=== PATIENT | female | born 1990 | race African-American/Black ===

== ENCOUNTER 2017-01-09 07:32 | Inpatient (IN) ==
[2017-01-09] MEDS ORDERED: LACTATED RINGERS 500 ML IV PRN (08:54)
[2017-01-09] MEDS ORDERED: ONDANSETRON 4 MG/2 ML VIAL IV PRN (08:54)
[2017-01-09] MEDS ORDERED: MEPERIDINE 50 MG/1 ML VIAL IV PRN (08:54)
[2017-01-09] MEDS ORDERED: AMPICILLIN INJ 2,000 MG in SODIUM CHLORIDE 0.9% 100 ML IV SCH (09:00)
[2017-01-09] MEDS ORDERED: ePHEDrine 50 MG/ML AMP IV PRN ×2 (09:01→09:21)
[2017-01-09] MEDS ORDERED: FAMOTIDINE 20 MG/2 ML VIAL IV ONE (09:01)
[2017-01-09] MEDS ORDERED: PROMETHAZINE 25 MG/1 ML VIAL IM ONE ×2 (09:01→09:21)
[2017-01-09] MEDS ORDERED: CITRIC ACID/SODIUM CITRATE 30 ML UDCUP PO ONE (09:01)
[2017-01-09] MEDS ORDERED: fentaNYL 2 MCG/ROPIV 0.2% EPID 150 ML EPIDURAL SCH ×2 (09:01→09:21)
[2017-01-09] MEDS ORDERED: diphenhydrAMINE 50 MG/1 ML VIAL IV PRN ×2 (09:01→09:21)
[2017-01-09] MEDS ORDERED: hydrOXYzine HCL 25 MG/1 ML VIAL IM PRN ×2 (09:01→09:21)
[2017-01-09] MEDS: LACTATED RINGERS 1,000 ML IV SCH ×3 (09:05→12:00)
[2017-01-09] MEDS ORDERED: ONDANSETRON 4 MG/2 ML VIAL IV ONE (09:21)
[2017-01-09] MEDS ORDERED: LACTATED RINGERS 1,000 ML IV ONE (09:21)
[2017-01-09] MEDS ORDERED: LACTATED RINGERS 500 ML IV ONE (09:21)
[2017-01-09] MEDS ORDERED: LACTATED RINGERS 1,000 ML IV SCH (09:30)
[2017-01-09 09:40] LABS: Basophils % 0.2 % (0.0-0.8); Eosinophils % 0.5 % (0.00-10.9); Hematocrit 28.8 VOL% (35.7-47.0); Hemoglobin 9.2 GM/DL (12.0-16.0); Immature Granulocytes % 0.6 %; Immature Granulocytes Absolute 0.04 #; Lymphocytes % 31.7 % (21.3-54.2); Mean Corpuscular HGB Conc 31.9 GM/DL (32-36); Mean Corpuscular Hemoglobin 27 PG (27-34); Mean Corpuscular Volume 83.5 FL (87-102); Mean Platelet Volume 9.6 FL (9.6-12.0); Monocytes # 0.5 10*3/uL (0.11-0.8); Monocytes % 7.3 % (1.7-12.7); Neutrophils # 3.9 10*3/uL (1.4-7.4); Neutrophils % 59.7 % (38.7-73.9); Platelet Count 231 T/CUMM (130-400); Red Blood Count 3.45 MC/CUMM (3.8-5.5); Red Cell Distribution Width 15.7 % (9.3-17.3); White Blood Count 6.4 T/CUMM (4-12)
[2017-01-09] MEDS ORDERED: LIDOCAINE 1% 50 ML VIAL ONE (10:30)
[2017-01-09] MEDS ORDERED: OXYTOCIN/LR 20 UNIT/1,000 ML BAG IV ONE ×3 (10:30→15:13)
--- NOTE | 2017-01-09 10:49 | OB/GYN History & Physical ---
History of Present Illness Chief complaint: Labor History of present illness: Ms. Pardo is a 26 year old female, with EDC 01/14/17 @ 39w2d gestation. Presented to L&D this am at approx 0700 with c/o contraction that have been occurring throughout the night and worsened at approx 0500. Denies LOF or vaginal bleeding. Reports fetus active. Cx was initially 4cm and changed to 5- 6 cm after 1 hour of observation. She was admitted for labor management, Ampicillin IV was began. Pt rec'd 1 dose IV Demerol for pain management then Epidural anesthesia. She is currently comfortable with no acute distress. No family members are present. care began at approx 20 weeks gestation. She has had regular care since then. Medical hx is sign for anemia. She has had 3 previous vaginal deliveries with proven pelvis up to 6#4oz . No significant family med hx. She is currently on PNV and Ferrous Sulfate. PN labs: Blood type, O+; HIV neg; Hep B NR; RPR NR; Rubella Immune; GBS positive (erythromycin resistant). Home Medications Medication Instructions Recorded Confirmed Type Multivitamin () [ 1 tablet PO DAILY 02/27/16 01/09/17 History Vitamin] Allergies Allergy/AdvReac Type Severity Reaction Status Date / Time No Known Allergies Allergy Verified 02/27/16 19:33 Medical,Surgical,& Family Hx - Medical History Hematology: History of: Anemia - Surgical History Cardiac Surgeries: Patient Denies: Cardiac Catheterization - Family History Family History: Reports;: Family Cancer (MGM), Family Diabetes (Father, PGM, Maternal uncle) Denies;: Family Anesthesia Reaction, Family Heart Disease, Family Hypertension, Family Psychiatric Problems, Family Stroke - Social History Smoking Status: Never smoker Frequency of Alcohol Use: None Type of Drug Use: None Marital Status: Life Partner Lives With:: Significant Other Functional capacity: independent ambulation 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 - Constitutional Vitals: Vital Signs Temp Pulse Resp BP Pulse Ox 01/09/17 08:00 97.4 F L 66 20 114/72 100 General appearance: normal weight, no acute distress - Antepartum / Post Antepartum Exam Cervix - Dilatation: 8cm Effacement: 90 Station: -1 Rupture: AROM @ 1045, clear fluid, no odor Presentation: Vertex Heart Rate: 120, moderate variability, pos accels, no decels, Category 1 tracing [place]: q2-4min, 80-120sec, strong by palpation with soft resting tone - Head Head exam: Present: normal inspection - Respiratory Respiratory exam: Present: clear to auscultation bilaterally - Cardiovascular Cardiovascular exam: Present: regular rate and rhythm - GI/Abdominal GI/Abdominal exam: Present: other (gravid) - Extremities Exam Extremities exam: Present: normal inspection - Neurological Exam Neurological exam: Present: alert, oriented X3 - Psychiatric Psychiatric exam: Present: normal affect, normal mood - Skin Skin exam: Present: normal color, warm, dry Assessment and Plan - Time spent with patient Time spent with patient: Less than 30 minutes (1) Active labor at term Status: Acute Assessment and plan: Continue current management. Expect vaginal delivery. Current Visit: Yes (2) 39 weeks gestation of Status: Acute Current Visit: Yes (3) Late care affecting Status: Acute Current Visit: Yes (4) Anemia complicating in third trimester Status: Acute Assessment and plan: Continue Ferrous Sulfate Current Visit: Yes Results - Labs CBC & BMP: 01/09/17 09:15 Lab Results: I have reviewed the past 24 hour labs
--- NOTE | 2017-01-09 12:44 | Operative Note ---
Date of procedure: 01/09/17 Pre-op diagnosis: Active Labor at 39w2d gestation; Late care; Anemia; GBS positive Post-op diagnosis: other (Vaginal Delivery; 39w2d gestation; late care ; Anemia) Procedure: Pt complete at 1202, +1 station. Pushing began with UCs. @ 1229, CARL position, viable male . Shoulders and body delivered without difficulty. Spontaneous cry and resp. Infant to mother's abd. Cord clamped and cut after pulsations ceased. Cord blood collected. Spontaneous delivery of placenta @ 1232, intact with 3 vessel cord. Pitocin 20unit in 1000cc LR began at bolus rate. Perineum inspected. Bilateral periurethral abrasions and right inner labial abrasion. Hemostatic, no sutures required. Bleeding stable. Fundus firm, ML U-2. Mother and baby stable. Apgars 9/9. Weight 6#3oz. Anesthesia: epidural Surgeon / Physician: Krista Beth Estimated blood loss: other (200mL) Specimens: other (Placenta to pathology) Condition: stable Disposition: floor Results - Labs CBC & BMP: 01/09/17 09:15 Discharge Plan - Discharge Medications No Action Multivitamin () [ Vitamin] 1 tablet PO DAILY - Follow Up or Referral - Forms/Instructions
[2017-01-09] MEDS ORDERED: WITCH HAZEL PADS 100/JAR TOP PRN (12:49)
[2017-01-09] MEDS ORDERED: HYDROCORTISONE 2.5% RECTAL CREAM 30 GM TUBE TOP PRN (12:49)
[2017-01-09] MEDS ORDERED: DIPH/TET/ACEL PERT BOOSTER VACCINE 0.5 ML VIAL IM ONE (12:49)
[2017-01-09] MEDS ORDERED: BISACODYL 10 MG SUPP RECTAL PRN (12:49)
[2017-01-09] MEDS ORDERED: LANOLIN 50% CREAM 0.3 OZ TUBE TOP PRN (12:49)
[2017-01-09] MEDS ORDERED: ACETAMINOPHEN 325 MG TABLET PO PRN (12:49)
[2017-01-09] MEDS ORDERED: BENZOCAINE 20%/MENTHOL 0.5% SPRAY 56 GM CAN TOP PRN (12:49)
[2017-01-09 13:21] LABS: Apearance,Urine CLEAR (Clear); Bacteria,Urine Occasional /HPF (Few); Bilirubin,Urine Negative (Negative); Blood, Urine Negative (Negative); Glucose,Urine (UA) Negative (Negative); Ketones,Urine Negative (Negative); Nitrite,Urine Negative (Negative); Protein,Urine Negative; Squamous Epithelial Cell,Urine Occasional /HPF (0-10); Urine Color Straw (Yellow); Urine Specific Gravity 1.009 (1.001-1.035); Urine Urobilinogen < 2.0 EU/DL (0.2-1.0); WBC,Urine <1 /HPF (0-6)
[2017-01-09] MEDS: IBUPROFEN 800 MG TABLET PO PRN (15:24)
[2017-01-09] MEDS: FERROUS SULFATE 325 MG TABLET PO SCH (21:14)
[2017-01-09] MEDS: DOCUSATE SODIUM 100 MG CAPSULE PO SCH (21:14)
[2017-01-10] MEDS: IBUPROFEN 800 MG TABLET PO PRN (05:15)
[2017-01-10 06:19] LABS: Basophils % 0.2 % (0.0-0.8); Eosinophils # 0.1 10*3/uL (0.0-0.87); Eosinophils % 0.5 % (0.00-10.9); Hematocrit 28.1 VOL% (35.7-47.0); Hemoglobin 8.9 GM/DL (12.0-16.0); Immature Granulocytes % 1.4 %; Immature Granulocytes Absolute 0.15 #; Lymphocytes # 2.9 10*3/uL (1.4-4.0); Mean Corpuscular HGB Conc 31.7 GM/DL (32-36); Mean Corpuscular Hemoglobin 27 PG (27-34); Mean Corpuscular Volume 83.6 FL (87-102); Mean Platelet Volume 9.8 FL (9.6-12.0); Monocytes # 0.7 10*3/uL (0.11-0.8); Monocytes % 5.9 % (1.7-12.7); Neutrophils # 7.2 10*3/uL (1.4-7.4); Platelet Count 196 T/CUMM (130-400); Red Blood Count 3.36 MC/CUMM (3.8-5.5); Red Cell Distribution Width 15.7 % (9.3-17.3)
[2017-01-10] MEDS: DOCUSATE SODIUM 100 MG CAPSULE PO SCH ×2 (09:14→20:18)
[2017-01-10] MEDS: FERROUS SULFATE 325 MG TABLET PO SCH ×2 (09:14→20:18)
--- NOTE | 2017-01-10 16:00 | OB/GYN Progress Note ---
Assessment and Plan (1) Vaginal delivery Problem details: Routine care. 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 Exam SMOKE CONTROL SUPERVISOR - Constitutional Vitals: Vital Signs Temp Pulse Resp BP Pulse Ox 01/10/17 15:04 96.9 F L 64 18 115/76 98 01/10/17 11:32 97.8 F 73 20 111/77 99 01/10/17 08:00 97.6 F 64 18 117/70 98 01/10/17 04:00 98.5 F 67 18 131/70 98 01/10/17 02:00 18 01/10/17 00:00 98.3 F 58 L 18 119/50 97 01/09/17 20:00 98.2 F 63 18 124/74 99 01/09/17 17:55 63 18 110/68 99 01/09/17 16:55 68 18 128/76 100 General appearance: no acute distress - Head Head exam: Present: normal inspection - Neck Neck exam: Present: normal inspection - Respiratory Respiratory exam: Present: clear to auscultation bilaterally. Absent: accessory muscle use - Breast Breasts: as per HPI - Cardiovascular Cardiovascular exam: Present: regular rate and rhythm - GI/Abdominal GI/Abdominal exam: Present: normal bowel sounds, soft. Absent: tenderness - Extremities Exam Extremities exam: Present: normal inspection - Back Exam Back exam: Present: normal inspection - Neurological Exam Neurological exam: Present: alert, oriented X3 - Psychiatric Psychiatric exam: Present: normal affect, normal mood, depressed Results - Labs CBC & BMP: 01/10/17 06:09
[2017-01-11 07:46] VITALS: BP 126/76
[2017-01-11] MEDS: IBUPROFEN 800 MG TABLET PO PRN (07:57)
--- NOTE | 2017-01-11 08:38 | Discharge Summary ---
Hospital Course - Hospital Course Hospital Course: Presented on 01/09/17 in active labor. Pt progressed and had uncomplicated vaginal delivery of a viable male infant. Her course has been normal. She is bottlefeeding. Discharge today. - Time spent with patient Time with patient DS: Less than 30 minutes Diagnosis - Discharge Diagnosis (1) Active labor at term Status: Resolved (2) 39 weeks gestation of Status: Resolved (3) Late care affecting Status: Resolved (4) Anemia complicating in third trimester Status: Acute Specialty Discharge - Follow Up or Referrals Discharge Plan - Discharge Data Disposition: Disch To Home/Self Care Condition at Discharge: Stable Discharge Diet: advance to your usual diet Activity: resume usual activities as tolerated Hygiene: may shower Driving: not for (1 week) Contact your physician if you experience:: fever over 101, Difficulty voiding, Redness or swelling, Nausea/Vomiting, Shortness of breath, Bleeding, pain uncontrolled by pain medications - Discharge Medications New Ibuprofen Tab [Motrin Tab] 800 mg PO Q6H PRN #30 tablet PRN Reason: Pain Moderate (4-7) Ferrous Sulfate Tab [Feosol Original Tab] 325 mg PO BID #60 tablet Continue Multivitamin () [ Vitamin] 1 tablet PO DAILY - Follow Up or Referral Follow Up: Krista Beth CNM [Physician] - - Forms/Instructions Instructions: Perineal Care (DC), Vaginal Delivery (DC), Bleeding (DC) Exam - Constitutional Vitals: Period Temp Pulse Resp BP Sys/Payan Pulse Ox Last 24 Hr 96.9 F-97.8 F 55-73 18-20 111-126/50-77 97-99 General appearance: normal weight, no acute distress - Head Head exam: Present: normal inspection - Respiratory Respiratory exam: Present: clear to auscultation bilaterally - Cardiovascular Cardiovascular exam: Present: regular rate and rhythm - GI/Abdominal GI/Abdominal exam: Present: normal bowel sounds, other (Fundus U-1, midline, firm, non-tender. Small amt lochia rubra. Perineum intact.) - Extremities Exam Extremities exam: Present: normal inspection - Back Exam Back exam: Present: normal inspection - Neurological Exam Neurological exam: Present: alert, oriented X3 - Psychiatric Psychiatric exam: Present: normal affect, normal mood - Skin Skin exam: Present: normal color, warm DS: Provider Date of admission: 01/09/17 11:18 Primary care physician: . No PCP Attending physician on admission: Reece Tabor DO Consults: 01/09/17 08:55 Consult to Anesthesiology [CONS] Routine Consulting Provider: Reason for Anesthesiology: Epidural Consult Comment: Epidural for pain managment 01/09/17 12:50 Consult to Armored Car Guard And Driver [CONS] Routine Consult Armored Car Guard And Driver: Breast Feeding Discharging clinician: Krista Beth CNM Expected date of discharge: 01/11/17
[2017-01-11] MEDS: FERROUS SULFATE 325 MG TABLET PO SCH (09:00)
[2017-01-11] MEDS: DOCUSATE SODIUM 100 MG CAPSULE PO SCH (09:00)
--- NOTE | 2017-01-12 11:21 | Pathology Report from [facility] ---
[facility] ACCESSION # : [id number] PATIENT NAME : Johanna Pardo ORDERING DR : NOLVIA MARTIN DO CLINICAL HX: 39.2 wks gestation, Late care, +GBS POST-OP DX: Same SPECIMEN INFO: Placenta GROSS DESCRIPTION: The specimen is received fresh labeled JOHANNA PARDO and consists of a 274.0 gm placenta measuring 17.3 x 15.5 x 1.7 cm. The membranes are pink-martins and translucent. The umbilical cord is pericentrally inserted, contains three vessels and measures 38.6 cm. The surface is circumarginate blue-pink. The maternal surface had mildly disrupted cotyledons and clotted blood. Two raised light red lesions present measuring up to 0.8 cm. No other gross abnormalities seen upon sectioning. Sections submitted (A) membranes and cord and (B) and maternal surfaces. DIAGNOSIS FOR JOHANNA PARDO: PLACENTA, MEMBRANES, UMBILICAL CORD: Focal placental infarction with dystrophic calcification, mild intervillous blood. Tri -vessel umbilical cord, eccentrically inserted. Membranes with focal chronic inflammation and attached blood. COLLECTED DATE: 01/11/2017 [facility] REPORT DATE: 01/12/2017 ELECTRONICALLY SIGNED BY: Luis Borja M.D. 01/12/2017 - 9:48:04 [id number]
== END 2017-01-11 10:45 | disposition home or self-care (01) | DRG 560 ==
LOC: N.LDOUT 07:32 → N.LD 07:36 → N.OB 14:48
PROVIDERS: ADMIT Obstetrics & Gynecology; ATTEND Obstetrics & Gynecology